=== PATIENT | male | born 1950 | race Caucasian/White ===

== ENCOUNTER 2016-02-24 09:17 | Outpatient (CLI) | payer OTHER ==
[2016-02-24 10:02] LABS: #Basophils 0.1 thou/uL (0.0-0.2); #Eosinphils 0.3 thou/uL (0.0-0.7); #Lymphocytes 1.4 thou/uL (1.20-3.40); #Monocytes 0.5 thou/uL (0.11-0.59); #Neutrophils 2.8 thou/uL (1.40-6.50); %Basophils 1.9 % (0.0-1.0); %Eosinophils 5.1 % (0.0-10.0); %Lymphocytes 27.1 % (21.0-51.0); %Monocytes 10.5 % (0.0-10.0); Hematocrit 44.3 % (42.0-52.0); Mean Platelet Volume 6.3 fL (7.4-10.4); Red Blood Cell (RBC) Count 4.83 mill/uL (4.70-6.10)
[2016-02-24 10:13] LABS: Hemoglobin A1c 5.1 % (4.0-6.0)
[2016-02-24 10:30] LABS: ALT (SGPT) 34 U/L (0-55); AST (SGOT) 21 U/L (5-34); Alkaline Phosphatase 79 U/L (40-150); Anion Gap 12 mmol/L (10-20); BUN (Urea Nitrogen) 11 mg/dL (8.4-25.7); Bilirubin, Direct 0.3 mg/dL (0.1-0.3); Bilirubin, Total 0.9 mg/dL (0.2-1.2); Calc. Creatinine Clearance 0 mL/min (70-130); Calcium 9.5 mg/dL (7.8-10.44); Carbon Dioxide 29 mmol/L (23-31); Chloride 98 mmol/L (98-107); Estimated GFR-MDRD 67; LDL Cholesterol, Calculated 86 mg/dL; Protein, Total 7.4 g/dL (5.8-8.1)
== END 2016-02-24 09:18 | disposition home or self-care (01) ==
LOC: NAV LAB 09:17
PROVIDERS: ATTEND Family Medicine
DX: I10 Essential (primary) hypertension (principal); E78.00 Pure hypercholesterolemia, unspecified; R97.20 Elevated prostate specific antigen [PSA]; Z79.899 Other long term (current) drug therapy
CPT/HCPCS: 80048; 80061; 80076; 83036; 84443; 85025; G0103

== ENCOUNTER 2016-11-02 08:55 | Outpatient (CLI) | payer OTHER ==
[2016-11-02 09:27] LABS: #Basophils 0.1 thou/uL (0.0-0.2); #Eosinphils 0.3 thou/uL (0.0-0.7); #Lymphocytes 1.2 thou/uL (1.20-3.40); #Monocytes 0.4 thou/uL (0.11-0.59); %Basophils 1.1 % (0.0-1.0); %Eosinophils 5.7 % (0.0-10.0); %Lymphocytes 24.8 % (21.0-51.0); %Monocytes 8.5 % (0.0-10.0); Hemoglobin 13.7 g/dL (14.0-18.0); Mean Corpuscular HGB CONC 32.9 g/dL (32.0-36.0); Mean Corpuscular Hemoglobin 30.6 pg (27.0-31.0); Mean Corpuscular Volume 92.9 fl (80.0-94.0); Mean Platelet Volume 6.9 fL (7.4-10.4); Platelet Count 232 thou/uL (130-400); RBC Distribution Width 11.5 % (11.5-14.5); Red Blood Cell (RBC) Count 4.48 mill/uL (4.70-6.10); White Blood Cell (WBC) Count 4.9 thou/uL (4.8-10.8)
[2016-11-02 09:48] LABS: Hemoglobin A1c 5.1 % (4.0-6.0)
[2016-11-02 09:50] LABS: ALT (SGPT) 28 U/L (8-55); AST (SGOT) 19 U/L (5-34); Albumin 4.3 g/dL (3.4-4.8); Alkaline Phosphatase 68 U/L (40-150); Anion Gap 13 mmol/L (10-20); BUN (Urea Nitrogen) 19 mg/dL (8.4-25.7); Bilirubin, Direct 0.2 mg/dL (0.1-0.3); Bilirubin, Total 0.4 mg/dL (0.2-1.2); Calc. Creatinine Clearance 0 mL/min (70-130); Calcium 9.6 mg/dL (7.8-10.44); Carbon Dioxide 27 mmol/L (23-31); Cardiac Risk 2.7 (Less than 4.5); Chloride 102 mmol/L (98-107); Cholesterol 152 mg/dl (< 200 Desired); Estimated GFR-MDRD 75; Glucose 90 mg/dL (80-115); HDL Cholesterol 56 mg/dL (>60 Neg Risk); LDL Cholesterol, Calculated 85 mg/dL; Potassium 4.6 mmol/L (3.5-5.1); Protein, Total 7.3 g/dL (5.8-8.1); Sodium 137 mmol/L (136-145); Triglycerides 57 mg/dL (Less than 150)
== END 2016-11-02 08:56 | disposition home or self-care (01) ==
LOC: EDSTATUS 08:55 → NAV LAB 08:55 → NAVSJIPCSP 08:55 → NAV LAB 08:56
PROVIDERS: ATTEND Family Medicine
DX: E78.00 Pure hypercholesterolemia, unspecified (principal); I10 Essential (primary) hypertension; R97.20 Elevated prostate specific antigen [PSA]; Z79.899 Other long term (current) drug therapy
CPT/HCPCS: 36415; 80048; 80061; 80076; 83036; 84443; 85025

== ENCOUNTER 2017-01-18 10:48 | Outpatient (CLI) | payer OTHER ==
--- NOTE | 2017-01-18 12:45 | RAD ---
RIGHT SHOULDER THREE VIEWS: History: Right shoulder pain. FINDINGS: Degenerative changes seen at the shoulder. There is spurring from the humeral head and there are subc hondral cystic changes in the humeral head. Humeral head appears to ride high on the glenoid suggesti ng chronic rotator cuff tear. Degenerative spurring is also seen at the AC joint. IMPRESSION: Moderate degenerative changes of the right shoulder as described. POS: [facility]
--- NOTE | 2017-01-18 13:00 | RAD ---
LEFT SHOULDER THREE VIEWS: History: Left shoulder pain. Date: 01-18-17 FINDINGS: Degenerative changes at the left shoulder noted. Mild spurring from the humeral head and subchondral cystic changes in the humeral head. Spurring at the AC joint. Humeral head appears to ride high on th e glenoid suggesting chronic rotator cuff tear. IMPRESSION: Mild to moderate degenerative changes left shoulder as described. POS: [facility]
== END 2017-01-18 10:49 | disposition home or self-care (01) ==
LOC: NAV RAD 10:48
PROVIDERS: ATTEND Physical Medicine & Rehabilitation
DX: M25.512 Pain in left shoulder (principal); M25.511 Pain in right shoulder; M19.012 Primary osteoarthritis, left shoulder; M19.011 Primary osteoarthritis, right shoulder